=== PATIENT | female | born 1945 | race Caucasian/White ===

== ENCOUNTER 2016-09-13 01:23 | Emergency (ER) | payer MEDICARE, OTHER ==
[~2016-09-13] VITALS: Ht 152.4 cm; Wt 66.8 kg
[2016-09-13] MEDS ORDERED: BACL10TA PO (01:29)
[2016-09-13] MEDS ORDERED: PROP10 PO (01:29)
[2016-09-13] MEDS ORDERED: OMEP20 PO (01:29)
[2016-09-13] MEDS ORDERED: CELE200 PO (01:29)
[2016-09-13] MEDS ORDERED: RANI150T7 PO (01:29)
[2016-09-13] MEDS ORDERED: NITR.4 SL (01:29)
[2016-09-13] MEDS ORDERED: FLUT16H NASAL (01:29)
[2016-09-13] MEDS ORDERED: LORA10TA7 PO (01:29)
[2016-09-13] MEDS ORDERED: METOCLOPRAMIDE HCL 5 MG/ML 2 ML VIAL IM ONE (02:00)
[2016-09-13] MEDS ORDERED: KETOROLAC TROMETHAMINE 30 MG/ML VIAL IM ONE (02:00)
[2016-09-13] MEDS ORDERED: DiphenhydrAMINE HCL 50 MG/ML VIAL IM ONE (02:00)
[2016-09-13 03:42] VITALS: BP 128/90
== END 2016-09-13 03:44 | disposition home or self-care (01) ==
LOC: EMS 01:24
DX: I11.9 Hypertensive heart disease without heart failure (principal); K21.9 Gastro-esophageal reflux disease without esophagitis
CPT/HCPCS: 70450; 96372; 99284; J1200; J1885; J2765

== ENCOUNTER 2018-07-31 13:25 | Emergency (ER) | payer MEDICARE, OTHER ==
[~2018-07-31] VITALS: Ht 152.4 cm; Wt 66.8 kg
[~2018-07-31 13:25] MED LIST: BACL10TA PO; CELE200 PO; FLUT16H NASAL; LORA10TA7 PO; NITR.4 SL; OMEP20 PO; PROP10TA73 PO; RANI150T7 PO
[2018-07-31] MEDS ORDERED: ACETAMINOPHEN 500 MG TABLET PO ONE (14:15)
[2018-07-31] MEDS ORDERED: BACITRACIN 0.9 GM PACKET OINTMENT TP ONE (14:15)
[2018-07-31] MEDS ORDERED: LIDOCAINE 5% TRANSDERMAL PATCH TD ONE (17:00)
[2018-07-31 18:26] VITALS: BP 154/94
== END 2018-07-31 18:27 | disposition home or self-care (01) ==
LOC: EMS 13:26
DX: S00.211A Abrasion of right eyelid and periocular area, initial encounter (principal); S20.211A Contusion of right front wall of thorax, initial encounter; I11.9 Hypertensive heart disease without heart failure; K21.9 Gastro-esophageal reflux disease without esophagitis; M19.90 Unspecified osteoarthritis, unspecified site; M81.0 Age-related osteoporosis without current pathological fracture; Z90.49 Acquired absence of other specified parts of digestive tract; Z79.899 Other long term (current) drug therapy; W10.1XXA Fall (on)(from) sidewalk curb, initial encounter; Y93.89 Activity, other specified; Y92.512 Supermarket, store or market as the place of occurrence of the external cause; Y99.8 Other external cause status
CPT/HCPCS: 70450; 70486; 71101

== ENCOUNTER 2019-06-01 21:24 | Inpatient (IN) | payer MEDICARE, OTHER ==
[~2019-06-01] VITALS: Ht 152.4 cm; Wt 62.4 kg
[~2019-06-01 21:24] MED LIST changes: -NITR.4 SL; +NITR0.4T52 SL
[2019-06-01] MEDS ORDERED: PANT40TA25 PO (21:37)
[2019-06-01] MEDS ORDERED: FAMO20 PO (21:38)
[2019-06-01 22:18] LABS: APPEARANCE,URINE CLEAR (CLEAR); BILIRUBIN,URINE NEGATIVE (NEGATIVE); GLUCOSE, URINE (UA) NEGATIVE (NEGATIVE); KETONES,URINE NEGATIVE (NEGATIVE); LEUKOCYTE ESTERASE ,URINE TRACE (NEGATIVE); NITRATE,URINE NEGATIVE (NEGATIVE); OCCULT BLOOD,URINE TRACE (NEGATIVE); PH,URINE 6.5 (5.0-8.0); PROTEIN,URINE NEGATIVE (NEGATIVE)
[2019-06-01 22:46] LABS: BASOPHILS % (AUTO) 1.1 % (0.0-2.0); EOSINOPHILS % (AUTO) 7.6 % (1.0-6.0); HEMATOCRIT 39.2 % (36-46); HEMOGLOBIN 13.3 g/dL (12.0-16.0); LYMPHOCYTES # (AUTO) 1.8 K/uL (1.0-4.8); LYMPHOCYTES % (AUTO) 29.2 % (22.0-44.0); MEAN CORPUSCULAR HEMOGLOBIN 30.3 pg (26.0-34.0); MEAN CORPUSCULAR HGB CONC 33.9 G/dL (31.0-37.0); MEAN CORPUSCULAR VOLUME 89 fL (80-100); MONOCYTES # (AUTO) 0.5 K/uL (0.1-1.0); MONOCYTES % (AUTO) 8.2 % (2.0-9.0); NEUTROPHILS # (AUTO) 3.3 K/uL (1.8-7.7); NEUTROPHILS % (AUTO) 53.9 % (40.0-70.0); PLATELET COUNT (AUTO) 249 K/uL (150-450); RED BLOOD CELL COUNT(AUTO) 4.38 MIL/uL (4.00-5.20); RED CELL DISTRIBUTION WIDTH 14.2 % (11.5-14.5)
[2019-06-01 22:49] LABS: BACTERIA,URINE Rare /HPF (None Seen); SQUAMOUS EPITHELIAL CELL,UR Few /LPF (None Seen)
[2019-06-01 22:53] LABS: CALCIUM, TOTAL 8.9 mg/dL (8.8-10.5); CREATININE 1.24 mg/dL (0.60-1.30); POTASSIUM 3.3 mmol/L (3.5-5.1)
[2019-06-01 23:00] LABS: ALBUMIN 3.5 g/dL (3.4-5.0); BILIRUBIN,TOTAL 0.4 mg/dL (0.1-1.0); TOTAL PROTEIN, SERUM 7.4 g/dL (6.4-8.2)
[2019-06-01] MEDS ORDERED: ASPIRIN 325 MG TABLET PO ONE (23:15)
[2019-06-01] MEDS ORDERED: NITROGLYCERIN 0.4 MG SUBLINGUAL TABLET #25 SL ONE (23:15)
[2019-06-02] MEDS ORDERED: ONDANSETRON HCL 4 MG/2 ML VIAL IVP ONE
[2019-06-02] MEDS ORDERED: 0.9% SODIUM CHLORIDE 10 ML SYRINGE IVP PRN
[2019-06-02] MEDS ORDERED: KETOROLAC TROMETHAMINE 30 MG/ML VIAL IVP ONE
[2019-06-02] MEDS ORDERED: ACETAMINOPHEN 325 MG TABLET PO PRN
[2019-06-02] MEDS ORDERED: MORPHINE SULFATE 2 MG/ML SYRINGE IVP ONE
[2019-06-02] MEDS ORDERED: NITROGLYCERIN 2% (1 GM=INCH) PACKET TP ONE (01:00)
[2019-06-02] MEDS ORDERED: POTASSIUM CHLORIDE 10% 40 MEQ/30 ML LIQUID UDCUP PO ONE (01:00)
[2019-06-02 01:49] VITALS: BP 126/74
[2019-06-02 04:41] VITALS: BP 147/83
[2019-06-02 07:31] VITALS: BP 145/88
[2019-06-02] MEDS ORDERED: MAGNESIUM HYDROXIDE SUSPENSION 30 ML UDCUP PO PRN (10:30)
[2019-06-02] MEDS ORDERED: HYDROCODONE/ACETAMINOPHEN 5-325 MG TABLET PO PRN (10:30)
[2019-06-02] MEDS ORDERED: MORPHINE SULFATE 2 MG/ML SYRINGE IVP PRN (10:30)
[2019-06-02] MEDS ORDERED: ZOLPIDEM TARTRATE 5 MG TABLET PO PRN (10:30)
[2019-06-02] MEDS ORDERED: ONDANSETRON HCL 4 MG/2 ML VIAL IVP PRN ×2 (10:30)
[2019-06-02] MEDS ORDERED: BISACODYL 10 MG RECTAL RECTAL SUPPOSITORY PR PRN (10:30)
[2019-06-02] MEDS ORDERED: GuaiFENesin/D-METHORPHAN [SUGAR-FREE] 200-20MG/10 ML SYRUP UDCUP PO PRN (10:30)
[2019-06-02] MEDS: ACETAMINOPHEN 325 MG TABLET PO PRN (13:32)
[2019-06-02 15:09] VITALS: BP 134/79
[2019-06-02] MEDS: BACLOFEN 10 MG TABLET PO SCH ×2 (15:42→21:29)
[2019-06-02] MEDS: HEPARIN SODIUM,PORCINE 5,000 UNITS/ML VIAL SQ SCH (15:57)
[2019-06-02 20:35] VITALS: BP 123/72
[2019-06-02] MEDS ORDERED: PANTOPRAZOLE SODIUM 40 MG DR TABLET PO SCH (21:00)
[2019-06-02] MEDS: DOCUSATE SODIUM 100 MG CAPSULE PO SCH (21:29)
[2019-06-02] MEDS: FLUTICASONE PROPIONATE 50 MCG/SPRAY 16 GM NASAL SPRAY NASAL SCH (21:30)
[2019-06-03] VITALS: BP 131/79
[2019-06-03 04:55] VITALS: BP 125/76
[2019-06-03] MEDS: ACETAMINOPHEN 325 MG TABLET PO PRN (06:04)
[2019-06-03 06:41] LABS: BASOPHILS % (AUTO) 1.4 % (0.0-2.0); EOSINOPHILS % (AUTO) 7.5 % (1.0-6.0); HEMATOCRIT 39.3 % (36-46); HEMOGLOBIN 13.2 g/dL (12.0-16.0); LYMPHOCYTES # (AUTO) 1.7 K/uL (1.0-4.8); LYMPHOCYTES % (AUTO) 31.2 % (22.0-44.0); MEAN CORPUSCULAR HEMOGLOBIN 30.3 pg (26.0-34.0); MEAN CORPUSCULAR HGB CONC 33.7 G/dL (31.0-37.0); MEAN CORPUSCULAR VOLUME 90 fL (80-100); MONOCYTES # (AUTO) 0.4 K/uL (0.1-1.0); MONOCYTES % (AUTO) 7.4 % (2.0-9.0); NEUTROPHILS # (AUTO) 2.9 K/uL (1.8-7.7); NEUTROPHILS % (AUTO) 52.5 % (40.0-70.0); PLATELET COUNT (AUTO) 236 K/uL (150-450); RED BLOOD CELL COUNT(AUTO) 4.37 MIL/uL (4.00-5.20); RED CELL DISTRIBUTION WIDTH 14.6 % (11.5-14.5)
[2019-06-03 07:08] LABS: ANION GAP 8 mmol/L (8-16); CALCIUM, TOTAL 9.1 mg/dL (8.8-10.5); CARBON DIOXIDE 27 mmol/L (22-29); CHLORIDE 105 mmol/L (98-107); CHOL/HDL RATIO 3.6 (3.9-5.7); CHOLESTEROL 173 mg/dL (131-200); CREATININE 0.87 mg/dL (0.60-1.30); GLUCOSE,RANDOM 84 mg/dL (70-110); HDL CHOLESTEROL 48 mg/dL (40-60); LDL CHOL (CALC.) 102 mg/dL (0-130); SODIUM SERUM 140 mmol/L (136-145); TRIGLYCERIDES 113 mg/dL (15-150); UREA NITROGEN, BLOOD 13 mg/dL (7-18)
[2019-06-03 07:10] LABS: GLOMERULAR FILTR. RATE CALC > 60 mL/min (>60)
[2019-06-03 07:29] VITALS: BP 138/82
[2019-06-03] MEDS: FLUTICASONE PROPIONATE 50 MCG/SPRAY 16 GM NASAL SPRAY NASAL SCH (08:07)
[2019-06-03] MEDS: DOCUSATE SODIUM 100 MG CAPSULE PO SCH (08:08)
[2019-06-03] MEDS: BACLOFEN 10 MG TABLET PO SCH (08:08)
[2019-06-03] MEDS: HEPARIN SODIUM,PORCINE 5,000 UNITS/ML VIAL SQ SCH ×2 (08:08)
[2019-06-03] MEDS ORDERED: LORATADINE 10 MG TABLET PO SCH (09:00)
[2019-06-03] MEDS ORDERED: PANTOPRAZOLE SODIUM 40 MG DR TABLET PO SCH (09:00)
[2019-06-03] MEDS ORDERED: PROPRANOLOL HCL 10 MG TABLET PO SCH (09:00)
[2019-06-03] MEDS ORDERED: FAMOTIDINE 20 MG TABLET PO SCH (09:00)
[2019-06-03] MEDS ORDERED: CELECOXIB 200 MG CAPSULE PO SCH (09:00)
[2019-06-03 11:18] VITALS: BP 137/81
== END 2019-06-03 12:35 | disposition home or self-care (01) | DRG 313 ==
LOC: EMS 21:24 → 5S 23:30
PROVIDERS: ADMIT Internal Medicine; ATTEND Internal Medicine
DX: R07.89 Other chest pain (principal); E87.6 Hypokalemia; J06.9 Acute upper respiratory infection, unspecified; M81.0 Age-related osteoporosis without current pathological fracture; I10 Essential (primary) hypertension; J30.9 Allergic rhinitis, unspecified; K21.9 Gastro-esophageal reflux disease without esophagitis; M19.90 Unspecified osteoarthritis, unspecified site; K52.9 Noninfective gastroenteritis and colitis, unspecified; M77.9 Enthesopathy, unspecified; Z88.1 Allergy status to other antibiotic agents; Z90.49 Acquired absence of other specified parts of digestive tract
CPT/HCPCS: 74022; 93005; 93306; J1644; J1885; J2270; J2405